=== PATIENT | female | born 1965 | race Caucasian/White ===

== ENCOUNTER 2020-03-20 08:14 | Emergency (ER) | payer OTHER ==
[2020-03-20] MEDS ORDERED: BUTALB/ACETAM/CAFF 50/325/40MG TABLET PO STA (08:54)
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
[2020-03-20 11:49] VITALS: BP 140/94
== END 2020-03-20 12:16 | disposition home or self-care (01) ==
LOC: ED 08:14
DX: R51.9 Headache, unspecified (principal); M54.2 Cervicalgia; V89.2XXA Person injured in unspecified motor-vehicle accident, traffic, initial encounter
CPT/HCPCS: 70450; 72125; 99284; A9270